=== PATIENT | female | born 1955 | race Asian ===

== ENCOUNTER → 2019-01-26 | Outpatient (CLI) | payer MEDICAID ==
--- NOTE | 2019-01-27 12:11 | CRLMY ---
INDICATION: bilateral screening mammogram asymptomatic 63 year old been obtained using full-field digital technique. These mammographic images were interpreted with the benefit of computer-aided detection. COMPARISON FILM: 02/19/15, 02/26/12, 07/26/10. FINDINGS: There are scattered fibroglandular densities. There are no masses or calcifications that are suspicious for malignancy. IMPRESSION: There is no radiographic evidence for malignancy. ASSESSMENT: BI-RADS Category 1: Negative RECOMMENDATION: Routine screening mammogram in 1 year. A lay language report of this examination will be provided to the patient. Breast Tomosynthesis was used in this interpretation. [email or web address] Dictated by: Marty Wilson MD @ 01/27/2019 12:08:30 (Electronically Signed)
== END ==
LOC: JP.MAM 14:17
PROVIDERS: ATTEND Family Medicine
DX: Z12.31 Encounter for screening mammogram for malignant neoplasm of breast (principal)
CPT/HCPCS: 77063; 77067

== ENCOUNTER 2021-02-18 06:40 | Day surgery (SDC) | payer MEDICARE ==
[2021-02-18] MEDS ORDERED: Ondansetron 4 MG/2 ML SDV ONE (07:22)
[2021-02-18] MEDS ORDERED: Propofol 200 MG/20 ML SDV ONE (07:22)
[2021-02-18] MEDS ORDERED: Dexamethasone 4 MG/ML SDV ONE (07:22)
[2021-02-18] MEDS ORDERED: Sodium Chloride 0.9% 1,000 ML IV SCH (07:30)
--- NOTE | 2021-02-18 10:26 | OR ---
DATE OF PROCEDURE: 02/18/2021 SURGEON: Curtis Lau MD PROCEDURE: Colonoscopy. FINDINGS: Normal colonoscopy. COMPLICATIONS: None. RESEARCH LABORATORY MANAGER: None. ANESTHESIA: MAC. PREOPERATIVE DIAGNOSIS: Screening colonoscopy. POSTOPERATIVE DIAGNOSIS: Screening colonoscopy. RISKS: Risks, benefits, alternatives, and limitations including, but not limited to, infection, bleeding, perforation, false positives, and false negatives were explained to the patient, who wished to proceed. PROCEDURE IN DETAIL: The patient was placed in left lateral decubitus position. Digital rectal exam was performed without abnormality. Scope was introduced and advanced atraumatically to the ileocecal valve. A photo was taken of the appendiceal orifice. The scope was brought back to the ascending, transverse, descending colon, and retroflexed. No old or new blood. No masses. No polyps. No diverticulosis. No abnormalities on retroflexion. Greater than 8 minutes was spent removing the scope. Approximately 90% luminal surface could be seen. The patient tolerated the procedure well. Curtis Lau MD /[id number]
== END 2021-02-18 09:58 | disposition home or self-care (01) ==
LOC: JP.SDS 06:40
PROVIDERS: ATTEND Surgery
DX: Z12.11 Encounter for screening for malignant neoplasm of colon (principal)
CPT/HCPCS: G0121; J1100; J2405; J2704; J7030